=== PATIENT | male | born 1980 | race Caucasian/White ===

== ENCOUNTER 2022-02-15 11:05 | Emergency (ER) | payer OTHER ==
[2022-02-15] MEDS ORDERED: Sodium Chloride 0.9% 1,000 ML IV ONE (11:48)
[2022-02-15 13:12] LABS: CARBON DIOXIDE,CO2 26.6 mmol/L (21.0-32.0); POTASSIUM,K 4.2 mmol/L (3.5-5.1)
== END 2022-02-15 15:05 | disposition home or self-care (01) ==
LOC: MW.ED 11:05
DX: N21.0 Calculus in bladder (principal); R31.29 Other microscopic hematuria
CPT/HCPCS: 36415; 74176; 80053; 81001; 85025; 96360; 99284; J7030